=== PATIENT | male | born 1975 | race Hispanic/Latino ===

== ENCOUNTER 2025-03-31 18:08 | Emergency (ER) | payer MEDICARE ==
[~2025-03-31] VITALS: Ht 170.2 cm; Wt 68.0 kg
[2025-03-31 19:23] LABS: CORONAVIRUS COVID-19 AG NEGATIVE (NEGATIVE); INFLUENZA A AG NEGATIVE (NEGATIVE); INFLUENZA B AG NEGATIVE (NEGATIVE); STREPTOCOCCUS GRP A ANTIGEN NEGATIVE (NEGATIVE)
[2025-03-31 20:13] VITALS: PULSE 77; RESP 18; TEMP 98.6; O2SAT 99
[2025-03-31] MEDS ORDERED: TAMIFLU75 MG PO (20:13)
== END 2025-03-31 20:15 | disposition home or self-care (01) ==
LOC: ER 18:40
DX: R05.9 Cough, unspecified (principal); B34.9 Viral infection, unspecified; R53.81 Other malaise; Z11.52 Encounter for screening for COVID-19
CPT/HCPCS: 83518; 87070; 99283